=== PATIENT | female | born 1995 ===

== ENCOUNTER 2018-10-04 20:27 | Emergency (ER) | payer MEDICAID ==
[2018-10-04 20:45] VITALS: BP 107/67; PULSE 100; RESP 18; TEMP 97.5; O2SAT 98
[2018-10-04] MEDS ORDERED: Tobramycin 0.3% OPH OINT OD STA (21:00)
--- NOTE | 2018-10-04 21:04 | C.PDOC ---
History Of Present Illness 23 year old female presents to the ED for evaluation of left eyelid swelling which began yesterday. Patient reports history of similar symptoms in the past for which she saw the eye doctor and was diagnosed with "clogged duct" and treated with Tobradex eye drops. She has been using leftover drops from the previous episode without significant relief. Patient applied eyeliner today, which made the swelling worse and prompted this visit. Patient denies fever, chills, headache, diplopia, vision change, eye discharge or redness. Time Seen by Provider: 10/04/18 20:42 Chief Complaint (Nursing): Eye Problem History Per: Patient History/Exam Limitations: no limitations Onset/Duration Of Symptoms: Hrs Current Symptoms Are (Timing): Still Present Injury To Eye?: No Associated Symptoms: Swelling. denies: Decreased Vision, Discharge From Eye Additional History Per: Patient Past Medical History Reviewed: Historical Data, Nursing Documentation, Vital Signs Vital Signs: Last Vital Signs Temp 97.5 F L 10/04/18 20:38 Pulse 100 H 10/04/18 20:38 Resp 18 10/04/18 20:38 BP 107/67 10/04/18 20:38 Pulse Ox 98 10/04/18 20:38 - Medical History PMH: Arthritis, Rheumatoid Arthritis Denies: Chronic Kidney Disease Surgical History: No Surg Hx Family History: States: Unknown Family Hx - Social History Hx Tobacco Use: No Hx Alcohol Use: No Hx Substance Use: No - Immunization History Hx Tetanus Toxoid Vaccination: No Hx Influenza Vaccination: Yes Hx Pneumococcal Vaccination: No Review Of Systems Except As Marked, All Systems Reviewed And Found Negative. Constitutional: Negative for: Fever, Chills Eyes: Positive for: Other (left eyelid swelling ). Negative for: Vision Change Physical Exam - Physical Exam Appears: Non-toxic, No Acute Distress Skin: Normal Color, Warm, Dry Head: Atraumatic, Normacephalic Eye(s): bilateral: PERRL, EOMI, right: Normal Inspection, left: Other (swelling, tenderness and erythema to eyelid ) Nose: Normal Oral Mucosa: Moist Neck: Normal ROM Chest: Symmetrical Respiratory: No Accessory Muscle Use Extremity: Normal ROM Neurological/Psych: Oriented x3, Normal Speech, Normal Cognition ED Course And Treatment O2 Sat by Pulse Oximetry: 98 (on RA) Pulse Ox Interpretation: Normal Progress Note: Tobramycin OD administered. On reassessment, patient is resting comfortably, showing no signs of distress and is stable for discharge. Patient will be given Rx for antibiotics, is advised to apply warm compresses to the area and to follow up with eye doctor within 1-2 days for further evaluation. Advised to return to the ED if symptoms persist or worsen. Disposition - Disposition Disposition: HOME/ ROUTINE Disposition Time: 21:02 Condition: STABLE Additional Instructions: Applying hot compresses for 10-15 minutes at a time for four times per day. Follow up with the eye doctor in 1-2 days. 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 - Scribe Statement The provider has reviewed the documentation as recorded by the Scribe (Christine Fonseca) All medical record entries made by the Scribe were at my direction and personally dictated by me. I have reviewed the chart and agree that the record accurately reflects my personal performance of the history, physical exam, medical decision making, and the department course for this patient. I have also personally directed, reviewed, and agree with the discharge instructions and disposition.
== END 2018-10-04 21:10 | disposition home or self-care (01) ==
LOC: C.ER 20:27
DX: H00.016 Hordeolum externum left eye, unspecified eyelid (principal); M06.9 Rheumatoid arthritis, unspecified